=== PATIENT | female | born 1995 | race Caucasian/White ===

== ENCOUNTER 2023-04-16 08:05 | Outpatient (OUT) | payer BC, SELFPAY ==
--- NOTE | 2023-04-16 | CT_ITS ---
[address] [address] Patient Name: PAUL WEBSTER MRN: [id number] date: 1995 Sex: F Assigned Patient Location: [facility] Current Patient Location: [facility] Accession/Order Number: [id number] Exam Date: 04/16/2023 10:45 Report Date: 04/17/2023 08:52 At the request of: CORIN DANIEL Procedure: CT abdomen pelvis wo con CLINICAL HISTORY: R10.12, LUQ abdominal pain. EXAMINATION: Unenhanced CT scan of the abdomen and pelvis: 04/16/2023. COMPARISON: None. TECHNIQUE: 3 mm axial images from lung bases through ischial tuberosities without intravenous, however, with oral contrast were obtained. Sagittal, coronal reconstructions were also performed. FINDINGS: Lung bases demonstrate no focal abnormalities. The heart size seems normal. CT ABDOMEN: The liver, gallbladder, spleen, pancreas, adrenal glands appear normal. There is no hydronephrosis or nephrolithiasis involving the left or the right kidney. The abdominal aorta has normal caliber. CT PELVIS: The small and large bowel loops are of normal caliber. Appendix is not seen. There is no ureterolithiasis. The bladder, uterus, ovaries appear normal. There is no pelvic adenopathy. There are no focal fluid collections. The visualized soft tissues seem normal. CT/CT abdomen pelvis wo con IMPRESSION: 1. No obvious explanation for patient's symptoms. 2. No nephro or ureterolithiasis. 3. The appendix is not seen but no secondary signs of acute appendicitis. Electronically authenticated by: SOLITARIO LINDER Date: 04/17/2023 08:52
[2023-04-16 09:11] LABS: HCG Qualitative NEGATIVE (NEGATIVE)
== END 2023-04-16 08:06 | disposition home or self-care (01) ==
PROVIDERS: PCP Family Medicine; Visit Provider Family Medicine
DX: R10.12 Left upper quadrant pain (principal)
CPT/HCPCS: 36415; 74176; 84703

== ENCOUNTER 2023-11-16 20:10 | Outpatient (REF) | payer BC, SELFPAY ==
[2023-11-23 15:08] LABS: Age Gdln ACOG Testing Note (.); IGP, rfx Aptima HPV ASCU Note (.)
== END 2023-11-16 20:11 | disposition home or self-care (01) ==
LOC: LAB 20:10
PROVIDERS: Visit Provider Physician Assistant
DX: Z01.419 Encounter for gynecological examination (general) (routine) without abnormal findings (principal)
CPT/HCPCS: G0145

== ENCOUNTER 2023-11-29 11:41 | Emergency (ER) | payer BC, SELFPAY ==
[2023-11-29 11:46] VITALS: BP 166/98; PULSE 87; TEMP 37.2; O2SAT 97; BMI 53.3
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
[2023-11-29] MEDS: ADACEL DIPH,PERTUSS(ACELL),TET VAC/PF 0.5 ML ADULT SYRINGE IM (12:15)
== END 2023-11-29 12:22 | disposition home or self-care (01) ==
PROVIDERS: Emergency Provider Emergency Medicine; PCP Family Medicine
DX: L03.113 Cellulitis of right upper limb (principal); Z23 Encounter for immunization
CPT/HCPCS: 90471; 90715; 99284

== ENCOUNTER 2024-11-09 10:20 | Outpatient (OUT) | payer BC, SELFPAY ==
--- NOTE | 2024-11-09 10:22 | MM_ITS ---
Patient Name: PAUL WEBSTER MR#: [id number] : 1995 Exam Date: 11/09/2024 Ordering Doctor: JAIME CARVALHO . RADIOLOGY REPORT PROCEDURE: MM TOMOSYNTHESIS SCREENING BI COMPARISON: None. INDICATIONS: Screening Calculator Name NCI Breast Cancer Risk Assessment Tool 5 Year Breast Cancer Risk Not Applicable. Lifetime Breast Cancer Risk Not Applicable. Personal Breast Cancer No Personal Ovarian Cancer No Treatments None Family Cancers Aunt-maternal with lung cancer at age 40; Uncle-maternal with pancreas cancer at age 40. LOCATION: [facility] BREAST COMPOSITION: The breasts are almost entirely fatty. FINDINGS: DIAGNOSTIC CATEGORY 1--NEGATIVE. RIGHT BREAST: No significant suspicious finding. LEFT BREAST: No significant suspicious finding. RECOMMENDATIONS: ROUTINE MAMMOGRAM AND CLINICAL EVALUATION IN 12 MONTHS. PLEASE NOTE: A NORMAL MAMMOGRAM DOES NOT EXCLUDE THE POSSIBILITY OF BREAST CANCER. A CLINICALLY SUSPICIOUS PALPABLE LUMP SHOULD BE BIOPSIED. Dictated by: Sylvester Brown DO on 11/09/2024 at 13:36 Approved by: Sylvester Brown DO on 11/09/2024 at 13:37
== END 2024-11-09 10:21 | disposition home or self-care (01) ==
LOC: MAMMO 10:20
PROVIDERS: Visit Provider Physician Assistant
DX: Z12.31 Encounter for screening mammogram for malignant neoplasm of breast (principal); Z80.1 Family history of malignant neoplasm of trachea, bronchus and lung; Z80.8 Family history of malignant neoplasm of other organs or systems
CPT/HCPCS: 77063; 77067